=== PATIENT | female | born 1995 | race Caucasian/White ===

== ENCOUNTER 2017-06-02 01:27 | Emergency (ER) | payer SELFPAY ==
[2017-06-02] MEDS ORDERED: Benzonatate 100 MG CAP ONE (02:29)
[2017-06-02] MEDS ORDERED: AMOXicillin 250 MG CAP ONE (02:29)
[2017-06-02] MEDS ORDERED: Lidocaine Viscous Sol 2% 15 ml UD Cup ONE (02:29)
== END 2017-06-02 02:37 | disposition home or self-care (01) ==
LOC: MADERS 01:27
DX: J20.9 Acute bronchitis, unspecified (principal); H60.501 Unspecified acute noninfective otitis externa, right ear; F17.210 Nicotine dependence, cigarettes, uncomplicated
CPT/HCPCS: 99283

== ENCOUNTER 2017-10-13 21:13 | Emergency (ER) | payer SELFPAY | END 2017-10-13 21:30 | disposition home or self-care (01) | LOC: MADERS 21:13 | DX: L89.899 Pressure ulcer of other site, unspecified stage (principal); F17.210 Nicotine dependence, cigarettes, uncomplicated | CPT/HCPCS: 99283 ==

== ENCOUNTER 2023-03-28 21:33 | Emergency (ER) | payer SELFPAY ==
[~2023-03-28 21:33] MED LIST: Sodium Chloride 0.9% 1,000 ML BAG ONE
[2023-03-28 23:03] LABS: #Basophils 0.1 thou/uL (0.0-0.2); #Eosinphils 0.3 thou/uL (0.0-0.7); #Lymphocytes 2.1 thou/uL (1.20-3.40); #Monocytes 0.5 thou/uL (0.11-0.59); #Neutrophils 9.8 thou/uL (1.40-6.50); %Basophils 1.1 % (0.0-1.0); %Eosinophils 2.6 % (0.0-10.0); %Lymphocytes 16.1 % (21.0-51.0); %Monocytes 4.2 % (0.0-10.0); Hemoglobin 14.5 g/dL (12.0-16.0); Mean Corpuscular Hemoglobin 29.2 pg (27.0-31.0); Mean Corpuscular Volume 91.1 fl (78.0-98.0); Platelet Count 265 10x3/uL (130-400); RBC Distribution Width 15.1 % (11.5-14.5); Red Blood Cell (RBC) Count 4.98 mill/uL (4.20-5.40); White Blood Cell (WBC) Count 12.9 10x3/uL (4.8-10.8)
[2023-03-28 23:12] LABS: BHCG - Serum Negative (NEGATIVE); Pregs Control Background? CLEAR/WHITE (CLR/WHITE); Pregs Control Bar Appear? YES (CONTROL BAR)
[2023-03-28 23:22] LABS: Acetaminophen Less than 10 mcg/mL (10.0-30.0); Alcohol Less than 10.0 mg/dL (Less than 10); Salicylate Less than 8.0 mg/dL (15.0-30.0)
[2023-03-28 23:23] LABS: ALT (SGPT) 20 U/L (8-55); AST (SGOT) 21 U/L (5-34); Albumin 4.4 g/dL (3.5-5.0); Alkaline Phosphatase 86 U/L (40-110); Anion Gap 15 mmol/L (10-20); BUN (Urea Nitrogen) 12 mg/dL (7.0-18.7); Bilirubin, Total 0.3 mg/dL (0.2-1.2); Calc. Creatinine Clearance 0 mL/min (70-130); Calcium 9.8 mg/dL (7.8-10.44); Carbon Dioxide 20 mmol/L (22-29); Chloride 106 mmol/L (98-107); Estimated GFR 96; Globulin 4.2 g/dL (2.4-3.5); Glucose 121 mg/dL (70-105); Potassium 3.9 mmol/L (3.5-5.1); Protein, Total 8.6 g/dL (6.0-8.3); Sodium 137 mmol/L (136-145)
[2023-03-28 23:25] LABS: Bilirubin Negative (Negative); Blood, Urine Moderate (Negative); Glucose, Urine (Dipstick) Negative (Negative); Ketone, Urine Trace mg/dL (Negative); Leukocyte Negative (Negative); Nitrite Positive (Negative); Protein, Urine (Dipstick) 30 mg/dL (Neg-Trace); Specific Gravity, Urine 1.025 (1.005-1.030); pH, Urine 5.5 (5.0-9.0)
[2023-03-28 23:26] LABS: Bacteria/HPF 4+ HPF (None Seen); CAUTI Indications for Culture Fever or rigors; Clarity Cloudy (Clear); Urine Culture Reflex Yes Yes
[2023-03-28 23:27] LABS: Amphetamine Not Detected (NotDetected); Barbiturates Screen Not Detected (NotDetected); Benzodiazepine Screen Not Detected (NotDetected); Cocaine Metabolite Screen Not Detected (NotDetected); Methadone Not Detected (NotDetected); Methamphetamine Not Detected (NotDetected); Opiate Screen Not Detected (NotDetected); Oxycodone Screen Not Detected (NotDetected); Phencyclidine (PCP) Not Detected (NotDetected); THC/Cannabinoid Screen Not Detected (NotDetected); Tricyclic Screen Not Detected (NotDetected)
[2023-03-28] MEDS ORDERED: cefTRIAXone (ROCEPHIN) 1 GM VIAL ONE (23:36)
[2023-03-28] MEDS ORDERED: cefTRIAXone (ROCEPHIN) 2 GM VIAL ONE (23:36)
== END 2023-03-29 00:10 | disposition home or self-care (01) ==
LOC: MADERS 21:33
DX: N10 Acute pyelonephritis (principal); D72.829 Elevated white blood cell count, unspecified; F17.210 Nicotine dependence, cigarettes, uncomplicated
CPT/HCPCS: 36416; 80053; 80306; 80307; 81001; 83735; 84703; 85025; 87077; 87086; 87186; 93005; 96361; 96365; J0696; J7050

== ENCOUNTER 2023-07-15 19:31 | Emergency (ER) | payer SELFPAY ==
[2023-07-15] MEDS ORDERED: HYDROcodone/Acetaminophen 10/325 mg Tablet ONE (20:29)
[2023-07-15] MEDS ORDERED: Ibuprofen 800 MG TAB ONE (20:29)
[2023-07-15] MEDS ORDERED: Lidocaine 1% w/Epinephrine 1:100K 20 ML VIAL ONE (20:29)
[2023-07-15] MEDS ORDERED: Sulfameth/Trimethoprim DS 800-160mg TAB ONE (20:29)
== END 2023-07-15 21:00 | disposition home or self-care (01) ==
LOC: MADERS 19:31
DX: L02.214 Cutaneous abscess of groin (principal); F17.210 Nicotine dependence, cigarettes, uncomplicated; F17.290 Nicotine dependence, other tobacco product, uncomplicated
CPT/HCPCS: 10060

== ENCOUNTER 2024-04-06 18:45 | Emergency (ER) | payer SELFPAY ==
[2024-04-06] MEDS ORDERED: Dexamethasone 4 MG TAB ONE (19:08)
[2024-04-06 19:41] LABS: SARS-CoV-2 E Target Negative; SARS-CoV-2 N2 Target Negative; SARS-CoV-2 NAA Rapid Test Not Detected (NotDetected); SARS-CoV-2 RdRP gene Negative
== END 2024-04-06 19:58 | disposition home or self-care (01) ==
LOC: MADERS 18:45
DX: J06.9 Acute upper respiratory infection, unspecified (principal); F17.210 Nicotine dependence, cigarettes, uncomplicated
CPT/HCPCS: 87081; 87430; 87804; 99284; J8540; U0002

== ENCOUNTER 2024-08-31 10:13 | Emergency (ER) | payer BC, SELFPAY ==
[2024-08-31] MEDS ORDERED: Lidocaine 1% PF 5 ML VIAL ONE (11:41)
[2024-08-31] MEDS ORDERED: Triple Antibiotic Oint 1 GM Packet ONE (12:08)
== END 2024-08-31 12:30 | disposition home or self-care (01) ==
LOC: MADERS 10:13
DX: L02.31 Cutaneous abscess of buttock (principal); F17.210 Nicotine dependence, cigarettes, uncomplicated
CPT/HCPCS: 10060

== ENCOUNTER 2024-11-26 14:05 | Emergency (ER) | payer BC, SELFPAY | END 2024-11-26 15:07 | disposition home or self-care (01) | LOC: MADERS 14:05 | DX: L02.31 Cutaneous abscess of buttock (principal); L03.317 Cellulitis of buttock; F17.210 Nicotine dependence, cigarettes, uncomplicated | CPT/HCPCS: 87070; 87077; 87186; 87205; 99283 ==

== ENCOUNTER 2025-05-16 14:46 | Emergency (ER) | payer SELFPAY ==
[2025-05-16] MEDS ORDERED: HYDROcodone/Acetaminophen 10/325 mg Tablet ONE (15:13)
[2025-05-16] MEDS ORDERED: Ibuprofen 800 MG TAB ONE (15:13)
== END 2025-05-16 15:58 | disposition home or self-care (01) ==
LOC: MADERS 14:46
DX: R07.81 Pleurodynia (principal); E11.9 Type 2 diabetes mellitus without complications; E66.9 Obesity, unspecified; F17.210 Nicotine dependence, cigarettes, uncomplicated
CPT/HCPCS: 99283

== ENCOUNTER 2025-09-24 18:09 | Emergency (ER) | payer SELFPAY ==
[2025-09-24] MEDS ORDERED: predniSONE 20 MG TAB ONE (21:10)
== END 2025-09-24 20:16 | disposition home or self-care (01) ==
LOC: MADERS 18:09
DX: J20.9 Acute bronchitis, unspecified (principal); E11.9 Type 2 diabetes mellitus without complications; E66.9 Obesity, unspecified
CPT/HCPCS: 87428; 99283; J7512